=== PATIENT | male | born 1950 | race Caucasian/White ===

== ENCOUNTER 2016-08-05 09:45 | Outpatient (CLI) | payer MEDICARE | END 2016-08-05 09:46 | disposition home or self-care (01) | DX: E11.622 Type 2 diabetes mellitus with other skin ulcer (principal) ==

== ENCOUNTER 2016-08-14 07:36 | Outpatient (CLI) | payer MEDICARE | END 2016-08-14 07:37 | disposition home or self-care (01) | DX: E11.9 Type 2 diabetes mellitus without complications (principal) ==

== ENCOUNTER 2016-10-28 07:14 | Outpatient (CLI) | payer MEDICARE | END 2016-10-28 07:15 | disposition home or self-care (01) | DX: E11.9 Type 2 diabetes mellitus without complications (principal); Z12.5 Encounter for screening for malignant neoplasm of prostate; Z79.899 Other long term (current) drug therapy; I10 Essential (primary) hypertension; E78.5 Hyperlipidemia, unspecified | CPT/HCPCS: 36415; 80053; 80061; 82043; 83036; 84443; G0103 ==

== ENCOUNTER 2016-12-25 09:41 | Outpatient (CLI) | payer MEDICARE | END 2016-12-25 09:42 | disposition home or self-care (01) | DX: L97.529 Non-pressure chronic ulcer of other part of left foot with unspecified severity (principal) ==

== ENCOUNTER 2017-01-20 07:19 | Outpatient (CLI) | payer MEDICARE ==
[2017-01-20 11:13] LABS: CALCIUM 9.6 mg/dL (8.5-10.3); CREATININE 0.9 mg/dL (0.6-1.2); POTASSIUM 4.2 mmol/L (3.5-5.0)
[2017-01-20 11:16] LABS: HEMOGLOBIN A1C 0.54 g/dL
== END 2017-01-20 07:20 | disposition home or self-care (01) ==
LOC: LAB.F 07:19
PROVIDERS: ATTEND Family Medicine
DX: E11.9 Type 2 diabetes mellitus without complications (principal)
CPT/HCPCS: 36415; 80048; 83036

== ENCOUNTER 2017-04-16 07:04 | Outpatient (CLI) | payer MEDICARE ==
[2017-04-16 14:39] LABS: ALBUMIN/GLOBULIN RATIO 1.6 (1.0-2.2); BILIRUBIN,TOTAL 0.6 mg/dL (0.2-1.0); BUN - BLOOD UREA NITROGEN 17 mg/dL (6-20); CALCIUM 9.4 mg/dL (8.5-10.3); CARBON DIOXIDE - CO2 28 mmol/L (21-32); CHLORIDE 103 mmol/L (101-111); CHOL/HDL RATIO 2.1 (<5.0); CHOLESTEROL 101 mg/dL; CREATININE 0.8 mg/dL (0.6-1.2); GFR - MDRD 96 (>89); GLUCOSE 107 mg/dL (70-100); HDL CHOLESTEROL 48 mg/dL; LDL/HDL RATIO 0.9 (<3.6); POTASSIUM 4.2 mmol/L (3.5-5.0); SODIUM 138 mmol/L (135-145); TOTAL PROTEIN 6.7 g/dL (6.7-8.2); TRIGLYCERIDES 54 mg/dL; VLDL CHOLESTEROL 11 mg/dL
[2017-04-16 15:22] LABS: HEMOGLOBIN A1C 0.44 g/dL
== END 2017-04-16 07:05 | disposition home or self-care (01) ==
LOC: LAB.F 07:04
PROVIDERS: ATTEND Family Medicine
DX: E11.9 Type 2 diabetes mellitus without complications (principal); I10 Essential (primary) hypertension; E78.5 Hyperlipidemia, unspecified
CPT/HCPCS: 36415; 80053; 80061; 82043; 83036

== ENCOUNTER 2017-06-14 08:00 | Outpatient (CLI) | payer MEDICARE ==
[2017-06-15 19:56] LABS: TEST RESULT REPORT
== END 2017-06-14 08:01 | disposition home or self-care (01) ==
LOC: LAB.F 08:00
PROVIDERS: ATTEND Family Medicine
DX: K52.9 Noninfective gastroenteritis and colitis, unspecified (principal)
CPT/HCPCS: 81599; 83630; 87045; 87046; 87077; 87177; 87209; 87329

== ENCOUNTER 2017-07-07 08:34 | Outpatient (CLI) | payer MEDICARE ==
[2017-07-07 19:26] LABS: HEMOGLOBIN A1C 0.41 g/dL
== END 2017-07-07 08:35 | disposition home or self-care (01) ==
LOC: LAB.F 08:34
PROVIDERS: ATTEND Family Medicine
DX: E11.39 Type 2 diabetes mellitus with other diabetic ophthalmic complication (principal)
CPT/HCPCS: 36415; 83036

== ENCOUNTER 2017-10-13 07:15 | Outpatient (CLI) | payer MEDICARE ==
[2017-10-13 11:10] LABS: ALBUMIN 4.3 g/dL (3.2-5.5); ALBUMIN/GLOBULIN RATIO 1.8 (1.0-2.2); ALKALINE PHOSPHATASE 33 IU/L (42-121); ALT ALANINE AMINOTRANSFERASE 20 IU/L (10-60); AST ASPARTATE AMINOTRANSFERASE 21 IU/L (10-42); BILIRUBIN,TOTAL 0.6 mg/dL (0.2-1.0); BUN - BLOOD UREA NITROGEN 12 mg/dL (6-20); CALCIUM 9.3 mg/dL (8.5-10.3); CARBON DIOXIDE - CO2 25 mmol/L (21-32); CHLORIDE 103 mmol/L (101-111); CHOLESTEROL 107 mg/dL; CREATININE 0.7 mg/dL (0.6-1.2); GFR - MDRD 112 (>89); GLUCOSE 128 mg/dL (70-100); HDL CHOLESTEROL 54 mg/dL; LDL CHOLESTEROL,CALCULATED 41 mg/dL; LDL/HDL RATIO 0.8 (<3.6); SODIUM 136 mmol/L (135-145); TOTAL PROTEIN 6.7 g/dL (6.7-8.2); VLDL CHOLESTEROL 12 mg/dL
[2017-10-13 11:18] LABS: HEMOGLOBIN A1C 0.45 g/dL; HEMOGLOBIN A1C % 6.3 % (4.6-6.2)
== END 2017-10-13 07:16 | disposition home or self-care (01) ==
LOC: LAB.F 07:15
PROVIDERS: ATTEND Family Medicine
DX: G89.29 Other chronic pain (principal); E11.39 Type 2 diabetes mellitus with other diabetic ophthalmic complication; L97.529 Non-pressure chronic ulcer of other part of left foot with unspecified severity; I10 Essential (primary) hypertension; E78.5 Hyperlipidemia, unspecified
CPT/HCPCS: 36415; 80053; 80061; 83036; 83721

== ENCOUNTER 2018-01-14 07:11 | Outpatient (CLI) | payer MEDICARE ==
[2018-01-14 10:53] LABS: CALCIUM 9.3 mg/dL (8.5-10.3); CREATININE 0.7 mg/dL (0.6-1.2)
[2018-01-14 11:09] LABS: HEMOGLOBIN A1C 0.43 g/dL; HEMOGLOBIN A1C % 6.1 % (4.6-6.2)
== END 2018-01-14 07:12 | disposition home or self-care (01) ==
LOC: LAB.F 07:11
PROVIDERS: ATTEND Family Medicine
DX: I10 Essential (primary) hypertension (principal); E11.39 Type 2 diabetes mellitus with other diabetic ophthalmic complication; G89.29 Other chronic pain; E78.5 Hyperlipidemia, unspecified
CPT/HCPCS: 36415; 80048; 83036

== ENCOUNTER 2018-04-13 07:12 | Outpatient (CLI) | payer MEDICARE ==
[2018-04-13 10:54] LABS: ALBUMIN 4.2 g/dL (3.2-5.5); ALBUMIN/GLOBULIN RATIO 1.6 (1.0-2.2); ALKALINE PHOSPHATASE 36 IU/L (42-121); ALT ALANINE AMINOTRANSFERASE 21 IU/L (10-60); AST ASPARTATE AMINOTRANSFERASE 19 IU/L (10-42); BILIRUBIN,TOTAL 0.7 mg/dL (0.2-1.0); BUN - BLOOD UREA NITROGEN 16 mg/dL (6-20); CALCIUM 9.4 mg/dL (8.5-10.3); CARBON DIOXIDE - CO2 28 mmol/L (21-32); CHLORIDE 102 mmol/L (101-111); CHOLESTEROL 106 mg/dL; CREATININE 0.9 mg/dL (0.6-1.2); GFR - MDRD 83 (>89); GLUCOSE 164 mg/dL (70-100); HDL CHOLESTEROL 53 mg/dL; LDL CHOLESTEROL,CALCULATED 38 mg/dL; LDL/HDL RATIO 0.7 (<3.6); SODIUM 137 mmol/L (135-145); TOTAL PROTEIN 6.9 g/dL (6.7-8.2); VLDL CHOLESTEROL 15 mg/dL
[2018-04-13 10:56] LABS: HB2 TOTAL 9.9 g/dL; HEMOGLOBIN A1C 0.53 g/dL
== END 2018-04-13 07:13 | disposition home or self-care (01) ==
LOC: LAB.F 07:12
PROVIDERS: ATTEND Family Medicine
DX: G89.29 Other chronic pain (principal); E11.9 Type 2 diabetes mellitus without complications; I10 Essential (primary) hypertension; E78.5 Hyperlipidemia, unspecified
CPT/HCPCS: 36415; 80053; 80061; 82043; 83036; 83721

== ENCOUNTER 2018-07-27 07:06 | Outpatient (CLI) | payer MEDICARE ==
[2018-07-27 12:58] LABS: ALBUMIN 4.1 g/dL (3.2-5.5); ALBUMIN/GLOBULIN RATIO 1.7 (1.0-2.2); ALKALINE PHOSPHATASE 32 IU/L (42-121); ALT ALANINE AMINOTRANSFERASE 20 IU/L (10-60); AST ASPARTATE AMINOTRANSFERASE 21 IU/L (10-42); BILIRUBIN,TOTAL 0.8 mg/dL (0.2-1.0); BUN - BLOOD UREA NITROGEN 13 mg/dL (6-20); CALCIUM 9.3 mg/dL (8.5-10.3); CARBON DIOXIDE - CO2 26 mmol/L (21-32); CHLORIDE 100 mmol/L (101-111); CHOL/HDL RATIO 2.5 (<5.0); CHOLESTEROL 119 mg/dL; CREATININE 0.8 mg/dL (0.6-1.2); GFR - MDRD 96 (>89); GLUCOSE 164 mg/dL (70-100); HDL CHOLESTEROL 48 mg/dL; LDL CHOLESTEROL,CALCULATED 57 mg/dL; LDL/HDL RATIO 1.2 (<3.6); SODIUM 137 mmol/L (135-145); TOTAL PROTEIN 6.5 g/dL (6.7-8.2); VLDL CHOLESTEROL 14 mg/dL
[2018-07-27 14:05] LABS: HB2 TOTAL 9.5 g/dL; HEMOGLOBIN A1C 0.48 g/dL; HEMOGLOBIN A1C % 6.8 % (4.6-6.2)
== END 2018-07-27 07:07 | disposition home or self-care (01) ==
LOC: LAB.F 07:06
PROVIDERS: ATTEND Internal Medicine
DX: E11.9 Type 2 diabetes mellitus without complications (principal)
CPT/HCPCS: 36415; 80053; 80061; 83036; 83721

== ENCOUNTER 2019-01-27 09:50 | Outpatient (CLI) | payer MEDICARE ==
[2019-01-27] MEDS ORDERED: BARIUM SULFATE 148 GM POWDER PO ONE (10:47)
[2019-01-27] MEDS ORDERED: BARIUM SULFATE 176 GM BOTTLE PO ONE (10:47)
--- NOTE | 2019-01-27 16:31 | XRAY Report ---
Reason: OTHER DYSPHAGIA Procedure Date: 01/27/2019 Accession Number: [id number] / [id number] Procedure: [place] - Esophogram CPT Code: FULL RESULT: EXAM: BARIUM ESOPHAGRAM EXAM DATE: 01/27/2019 10:31 AM. CLINICAL HISTORY: OTHER DYSPHAGIA. COMPARISONS: None. TECHNIQUE: Routine single contrast esophagram. Fluoroscopy Time: 3 minutes 23 seconds. Number of Images: 78. FINDINGS: Swallowing Mechanism: Normal. No tracheal aspiration or penetration. Esophageal Motility: Normal peristaltic stripping wave. Mucosa: Normal. No ulcerations or masses. Gastroesophageal Junction: Small hiatal hernia with minimal reflux into the lower esophagus. Other: A 13 mm barium tablet passes easily into the stomach. No findings of a Zenker's diverticulum IMPRESSION: 1. Very small hiatal hernia with reflux into the lower esophagus. 2. No evidence of a Zenker's diverticulum or stricture. 3. Otherwise unremarkable. RADIA
== END 2019-01-27 09:51 | disposition home or self-care (01) ==
LOC: DI 09:50
PROVIDERS: ATTEND Otolaryngology
DX: K44.9 Diaphragmatic hernia without obstruction or gangrene (principal); K21.9 Gastro-esophageal reflux disease without esophagitis
CPT/HCPCS: 74220; A9270

== ENCOUNTER 2019-02-08 08:00 | Outpatient (CLI) | payer MEDICARE ==
[2019-02-08 10:23] LABS: ALBUMIN 4.2 g/dL (3.2-5.5); ALBUMIN/GLOBULIN RATIO 1.4 (1.0-2.2); ALKALINE PHOSPHATASE 38 IU/L (42-121); ALT ALANINE AMINOTRANSFERASE 16 IU/L (10-60); AST ASPARTATE AMINOTRANSFERASE 19 IU/L (10-42); BILIRUBIN,TOTAL 0.5 mg/dL (0.2-1.0); BUN - BLOOD UREA NITROGEN 12 mg/dL (6-20); CALCIUM 9.5 mg/dL (8.5-10.3); CARBON DIOXIDE - CO2 24 mmol/L (21-32); CHLORIDE 104 mmol/L (101-111); CHOL/HDL RATIO 2.4 (<5.0); CHOLESTEROL 115 mg/dL; CREATININE 0.8 mg/dL (0.6-1.2); GFR - MDRD 96 (>89); GLUCOSE 152 mg/dL (70-100); HDL CHOLESTEROL 48 mg/dL; LDL CHOLESTEROL,CALCULATED 55 mg/dL; LDL/HDL RATIO 1.1 (<3.6); SODIUM 140 mmol/L (135-145); TOTAL PROTEIN 7.1 g/dL (6.7-8.2); VLDL CHOLESTEROL 12 mg/dL
[2019-02-08 10:34] LABS: HB2 TOTAL 8.1 g/dL; HEMOGLOBIN A1C 0.44 g/dL; HEMOGLOBIN A1C % 7.1 % (4.6-6.2)
[2019-02-08 10:36] LABS: MICROALBUMIN,URINE < 0.2 mg/dL (0-300.0)
== END 2019-02-08 08:01 | disposition home or self-care (01) ==
LOC: LAB.S 08:00
PROVIDERS: ATTEND Internal Medicine
DX: E78.5 Hyperlipidemia, unspecified (principal); E11.9 Type 2 diabetes mellitus without complications
CPT/HCPCS: 36415; 80053; 80061; 82043; 82570; 83036; 83721

== ENCOUNTER 2019-08-16 09:23 | Outpatient (CLI) | payer MEDICARE ==
[2019-08-16 18:04] LABS: HB2 TOTAL 7.6 g/dL; HEMOGLOBIN A1C 0.4 g/dL
[2019-08-16 18:09] LABS: CALCIUM 9.4 mg/dL (8.5-10.3); CREATININE 0.9 mg/dL (0.6-1.2)
== END 2019-08-16 09:24 | disposition home or self-care (01) ==
LOC: LAB.S 09:23
PROVIDERS: ATTEND Internal Medicine
DX: E11.9 Type 2 diabetes mellitus without complications (principal)
CPT/HCPCS: 36415; 80048; 83036

== ENCOUNTER 2020-08-13 07:17 | Outpatient (CLI) | payer MEDICARE ==
[2020-08-13 16:01] LABS: BASOPHILS # (AUTO) 0.1 10^3/uL (0.0-0.1); BASOPHILS % (AUTO) 1.6 %; EOSINOPHILS # (AUTO) 0.3 10^3/uL (0.0-0.7); EOSINOPHILS % (AUTO) 5.8 %; LYMPHOCYTES # (AUTO) 1.4 10^3/uL (1.5-3.5); MEAN CORPUSCULAR HEMOGLOBIN 15.6 pg (27.0-31.0); MEAN CORPUSCULAR HGB CONC 24.9 g/dL (32.0-36.0); MEAN CORPUSCULAR VOLUME 62.8 fL (80.0-94.0); MEAN PLATELET VOLUME 9.9 fL (7.4-11.4); MONOCYTES # (AUTO) 0.5 10^3/uL (0.0-1.0); MONOCYTES % (AUTO) 8.7 %; NEUTROPHILS # (AUTO) 2.9 10^3/uL (1.5-6.6); NEUTROPHILS % (AUTO) 56.7 %; PLT - PLATELET COUNT 359 10^3/uL (130-450); RED BLOOD COUNT 4.22 10^6/uL (4.70-6.10); RED CELL DISTRIBUTION WIDTH 23.1 % (12.0-15.0); WHITE BLOOD COUNT 5.2 x10^3/uL (4.8-10.8)
[2020-08-13 16:20] LABS: ALBUMIN 4.4 g/dL (3.2-5.5); ALBUMIN/GLOBULIN RATIO 1.8 (1.0-2.2); BILIRUBIN,TOTAL 0.7 mg/dL (0.2-1.0); CALCIUM 9.5 mg/dL (8.5-10.3); CREATININE 0.9 mg/dL (0.6-1.2); TOTAL PROTEIN 6.9 g/dL (6.7-8.2)
[2020-08-13 16:34] LABS: HGB - HEMOGLOBIN 6.6 g/dL (14.0-18.0)
[2020-08-13 17:36] LABS: PLATELET ESTIMATE, MANUAL NORMAL (130-450,000) (NORMAL); PLATELET MORPHOLOGY NORMAL APPEARANCE (NORMAL)
== END 2020-08-13 07:18 | disposition home or self-care (01) ==
LOC: LAB.S 07:17
PROVIDERS: ATTEND Internal Medicine
DX: I10 Essential (primary) hypertension (principal); Z12.5 Encounter for screening for malignant neoplasm of prostate; E11.9 Type 2 diabetes mellitus without complications; E78.5 Hyperlipidemia, unspecified
CPT/HCPCS: 36415; 80053; 85025; G0103; 84153

== ENCOUNTER 2020-08-14 12:03 | Outpatient (CLI) | payer MEDICARE ==
[2020-08-14 16:09] LABS: BASOPHILS # (AUTO) 0.1 10^3/uL (0.0-0.1); BASOPHILS % (AUTO) 0.9 %; EOSINOPHILS # (AUTO) 0.2 10^3/uL (0.0-0.7); EOSINOPHILS % (AUTO) 3.6 %; LYMPHOCYTES # (AUTO) 1.9 10^3/uL (1.5-3.5); LYMPHOCYTES % (AUTO) 28.1 %; MEAN CORPUSCULAR HEMOGLOBIN 15.7 pg (27.0-31.0); MEAN CORPUSCULAR HGB CONC 25.2 g/dL (32.0-36.0); MEAN CORPUSCULAR VOLUME 62.3 fL (80.0-94.0); MONOCYTES # (AUTO) 0.7 10^3/uL (0.0-1.0); MONOCYTES % (AUTO) 10.1 %; NEUTROPHILS # (AUTO) 3.8 10^3/uL (1.5-6.6); NEUTROPHILS % (AUTO) 57.1 %; PLT - PLATELET COUNT 352 10^3/uL (130-450); RED BLOOD COUNT 4.27 10^6/uL (4.70-6.10); RED CELL DISTRIBUTION WIDTH 22.8 % (12.0-15.0); WHITE BLOOD COUNT 6.6 x10^3/uL (4.8-10.8)
[2020-08-14 16:56] LABS: HGB - HEMOGLOBIN 6.7 g/dL (14.0-18.0)
[2020-08-14 18:30] LABS: PLATELET ESTIMATE, MANUAL NORMAL (130-450,000) (NORMAL); PLATELET MORPHOLOGY NORMAL APPEARANCE (NORMAL)
== END 2020-08-14 12:04 | disposition home or self-care (01) ==
LOC: LAB.S 12:03
PROVIDERS: ATTEND Internal Medicine
DX: D64.9 Anemia, unspecified (principal)
CPT/HCPCS: 36415; 85025

== ENCOUNTER 2020-09-12 11:02 | Outpatient (CLI) | payer MEDICARE ==
[2020-09-12] MEDS ORDERED: IOPAMIDOL-300 50 ML VIAL ONE (11:26)
[2020-09-12] MEDS ORDERED: IOVERSOL 320 100 ML VIAL IVP ONE ×2 (11:26→17:02)
--- NOTE | 2020-09-12 15:22 | CT Report ---
PROCEDURE: Abdomen/Pelvis W INDICATIONS: LUQ ABD PAIN, ABN WEIGHT LOSS CONTRAST: IV CONTRAST: Optiray 320 ml: 100 PO CONTRAST: Isovue 300 ml50 TECHNIQUE: After the administration of intravenous and oral contrast, 5 mm thick sections acquired from the diap hragms to the symphysis. 5 mm thick coronal and sagittal reformats were acquired. For radiation dos e reduction, the following was used: automated exposure control, adjustment of mA and/or kV accordin g to patient size. COMPARISON: None. FINDINGS: Image quality: Excellent. ABDOMEN: Lung bases: Lung bases are clear. Heart size is normal. Solid organs: Liver and spleen are normal in size and enhancement. Gallbladder is normal. Biliary system is non dilated. Pancreas enhances normally. No adrenal nodules. Kidneys demonstrate normal size and enhancement, without hydronephrosis. Peritoneum and bowel: Extensive sigmoid diverticulosis without findings of diverticulitis. Large volu me of formed stool throughout the colon which may indicate constipation. No abnormally dilated loops of bowel. No free air or free fluid. Nodes and vessels: No retroperitoneal or mesenteric adenopathy by size criteria. Aorta and inferior vena cava are normal in size. Miscellaneous: No ventral hernias. PELVIS: Genitourinary: Bladder wall thickness is normal. Miscellaneous: No inguinal hernias or adenopathy. Bones: No suspicious bony lesions. No vertebral body compression fractures. IMPRESSION: No acute finding to explain abdominal pain or weight loss. Large volume of formed stool throughout the colon may indicate constipation. Extensive sigmoid diverticulosis. Reviewed by: Albert Escobedo MD on 09/12/2020 3:20 PM PST Approved by: Albert Escobedo MD on 09/12/2020 3:20 PM PST Station ID: [id number]
== END 2020-09-12 11:03 | disposition home or self-care (01) ==
LOC: DI 11:02
PROVIDERS: ATTEND Internal Medicine
DX: R10.12 Left upper quadrant pain (principal); R63.4 Abnormal weight loss; K57.30 Diverticulosis of large intestine without perforation or abscess without bleeding
CPT/HCPCS: 74177; Q9967

== ENCOUNTER 2020-11-05 09:12 | Outpatient (CLI) | payer MEDICARE ==
[2020-11-05 15:08] LABS: BASOPHILS # (AUTO) 0.1 10^3/uL (0.0-0.1); BASOPHILS % (AUTO) 1.3 %; EOSINOPHILS # (AUTO) 0.3 10^3/uL (0.0-0.7); EOSINOPHILS % (AUTO) 5.9 %; HCT - HEMATOCRIT 28.2 % (42.0-52.0); HGB - HEMOGLOBIN 7.4 g/dL (14.0-18.0); LYMPHOCYTES # (AUTO) 1.3 10^3/uL (1.5-3.5); LYMPHOCYTES % (AUTO) 25.1 %; MEAN CORPUSCULAR HEMOGLOBIN 17.1 pg (27.0-31.0); MEAN CORPUSCULAR HGB CONC 26.2 g/dL (32.0-36.0); MONOCYTES # (AUTO) 0.4 10^3/uL (0.0-1.0); MONOCYTES % (AUTO) 7.8 %; NEUTROPHILS # (AUTO) 3.1 10^3/uL (1.5-6.6); NEUTROPHILS % (AUTO) 59.7 %; PLT - PLATELET COUNT 329 10^3/uL (130-450); RED BLOOD COUNT 4.34 10^6/uL (4.70-6.10); RED CELL DISTRIBUTION WIDTH 23.5 % (12.0-15.0); SLIDE REVIEW? Indicated; WHITE BLOOD COUNT 5.3 x10^3/uL (4.8-10.8)
[2020-11-05 15:28] LABS: PLATELET ESTIMATE, MANUAL NORMAL (130-450,000) (NORMAL); PLATELET MORPHOLOGY NORMAL APPEARANCE (NORMAL); WBC MORPHOLOGY (MULTIPLE) NORMAL APPEARANCE (NORMAL)
[2020-11-05 15:29] LABS: RBC MORPHOLOGY (MULTIPLE) 2+ ANISOCYTOSIS (NORMAL)
[2020-11-05 16:03] LABS: FECAL OCCULT BLOOD (FIT) NEGATIVE (NEGATIVE)
[2020-11-05 20:03] LABS: ESTIMATED AVERAGE GLUCOSE 123 mg/dL (70-100); HEMOGLOBIN A1c% 5.9 % (4.27-6.07)
== END 2020-11-05 09:13 | disposition home or self-care (01) ==
LOC: LAB.S 09:12
PROVIDERS: ATTEND Internal Medicine
DX: E11.9 Type 2 diabetes mellitus without complications (principal); D64.9 Anemia, unspecified; Z12.11 Encounter for screening for malignant neoplasm of colon
CPT/HCPCS: 36415; 82274; 82728; 83036; 85025

== ENCOUNTER 2020-11-29 07:13 | Outpatient (CLI) | payer MEDICARE ==
--- NOTE | 2020-11-29 08:20 | Ultrasound Report ---
PROCEDURE: Head or Neck Soft Tissue INDICATIONS: THYROMEGALY TECHNIQUE: Real-time scanning was performed of the thyroid gland, with image documentation. COMPARISON: None FINDINGS: Right: Thyroid lobe measures 4 x 1.5 x 1.6 cm, and is homogeneous in echotexture. Left: Thyroid lobe measures 4 x 1.4 x 1.7 cm, and is homogenous in echotexture. Isthmus: 2 mm thick. Nodule number: One Location: Midpole of left thyroid lobe Size: 4 x 3 x 5 mm. Composition: Cystic Echogenicity: Anechoic Shape: wider than tall. Margins: Smooth Echogenic foci: Common tail artifact Total points: 2 ACR TI-RADS category: 2, not suspicious. IMPRESSION: 1. Thyroid gland is normal in size. Benign appearing cystic nodule is seen in left thyroid lobe. No s uspicious thyroid nodule is seen. ACR TI-RADS definitions and recommendations: TI-RADS 1 (benign): 0 points. FNA not needed. TI-RADS 2 (not suspicious): 2 points. FNA not needed. TI-RADS 3 (mildly suspicious): 3 points. ? FNA if 2.5 cm or larger, follow up if 1.5 cm or larger (at 1, 3, and 5 years). TI-RADS 4 (moderately suspicious): 4-6 points. ? FNA if 1.5 cm or larger, follow up if 1 cm or larger (at 1, 2, 3, and 5 years). TI-RADS 5 (highly suspicious): 7 points or more. ? FNA if 1 cm or larger, follow up if 0.5 cm or larger (every year for 5 years). Reviewed by: Good Bledsoe MD on 11/29/2020 8:19 AM PDT Approved by: Good Bledsoe MD on 11/29/2020 8:19 AM PDT Station ID: [id number]
== END 2020-11-29 07:14 | disposition home or self-care (01) ==
LOC: DI 07:13
PROVIDERS: ATTEND Internal Medicine
DX: E04.1 Nontoxic single thyroid nodule (principal)

== ENCOUNTER 2020-12-13 15:14 | Outpatient (CLI) | payer MEDICARE | END 2020-12-13 15:15 | disposition home or self-care (01) | LOC: COV 15:14 | PROVIDERS: ATTEND Surgery | DX: Z01.812 Encounter for preprocedural laboratory examination (principal); D64.9 Anemia, unspecified; R63.4 Abnormal weight loss; E11.9 Type 2 diabetes mellitus without complications; Z79.4 Long term (current) use of insulin; Z20.822 Contact with and (suspected) exposure to COVID-19 ==

== ENCOUNTER 2020-12-18 06:05 | Day surgery (SDC) | payer MEDICARE ==
[2020-12-18] MEDS ORDERED: LACTATED RINGERS 1,000 ML IV ONE ×2 (06:49→08:13)
[2020-12-18] MEDS ORDERED: MIDAZOLAM 2 MG/2 ML VIAL ONE (06:56)
[2020-12-18] MEDS ORDERED: PROPOFOL 200 MG/20 ML VIAL IVP ONE (06:57)
[2020-12-18] MEDS ORDERED: KETAMINE 500 MG/10 ML VIAL ONE (07:00)
[2020-12-18] MEDS ORDERED: SODIUM CHLORIDE 0.9% 10 ML VIAL IVP ONE (07:01)
--- NOTE | 2020-12-18 07:10 | ANESTHESIA ---
Pre-Anesthesia VS, & Labs - Diagnosis weightloss, anemia - Procedure EGD and colonoscopy Vital Signs: Temp Pulse Resp BP Pulse Ox 36.4 C L 73 18 172/70 H 99 12/18/20 06:17 12/18/20 06:17 12/18/20 06:17 12/18/20 06:17 12/18/20 06:17 Height: 5 ft 7 in Weight (kg): 88.5 kg Body Mass Index: 30.5 BMI Classification: Obese - NPO >8 hours - Lab Results Current Lab Results: Laboratory Tests 12/18/20 06:39: POC Whole Bld Glucose 128 H Home Medications and Allergies Home Medications: Ambulatory Orders Aspirin [Aspirin EC] 81 mg PO DAILY 12/17/20 Atorvastatin [Lipitor] 10 mg PO DAILY 12/17/20 Benazepril HCl [Lotensin] 40 mg PO BID 12/17/20 Docusate Sodium 100Mg Capsule [Colace 100Mg Capsule] 400 mg PO DAILY 12/17/20 Ferrous Gluconate 324 mg PO DAILY 12/17/20 Finasteride [Proscar] 5 mg PO DAILY 12/17/20 Insulin Glargine [Lantus Solostar] 19 unit SQ DAILY PM 12/17/20 Lactobacillus Acidophilus [Probiotic Acidophilus] 1 tab PO BID 12/17/20 Meloxicam [Mobic] 7.5 mg PO BID 12/17/20 Omeprazole 40 mg PO DAILY 12/17/20 Tamsulosin [Flomax] 0.4 mg PO ONCE 12/17/20 diazePAM [Valium] 5 mg PO PRN PRN 12/17/20 glipiZIDE [Glucotrol Xl] 2.5 mg PO DAILY 12/17/20 metFORMIN [Glucophage] 1,000 mg PO TID 12/17/20 Aspirin [Aspirin EC] 81 mg PO DAILY 12/17/20 Atorvastatin [Lipitor] 10 mg PO DAILY 12/17/20 Benazepril HCl [Lotensin] 40 mg PO BID 12/17/20 Docusate Sodium 100Mg Capsule [Colace 100Mg Capsule] 400 mg PO DAILY 12/17/20 Ferrous Gluconate 324 mg PO DAILY 12/17/20 Finasteride [Proscar] 5 mg PO DAILY 12/17/20 Insulin Glargine [Lantus Solostar] 19 unit SQ DAILY PM 12/17/20 Lactobacillus Acidophilus [Probiotic Acidophilus] 1 tab PO BID 12/17/20 Meloxicam [Mobic] 7.5 mg PO BID 12/17/20 Omeprazole 40 mg PO DAILY 12/17/20 Tamsulosin [Flomax] 0.4 mg PO ONCE 12/17/20 diazePAM [Valium] 5 mg PO PRN PRN 12/17/20 glipiZIDE [Glucotrol Xl] 2.5 mg PO DAILY 12/17/20 metFORMIN [Glucophage] 1,000 mg PO TID 12/17/20 Allergies/Adverse Reactions: Allergies Allergy/AdvReac Type Severity Reaction Status Date / Time almond Allergy Severe Anaphylaxis Verified 12/17/20 14:55 cephalexin Allergy Severe Anaphylaxis Verified 12/17/20 14:55 Penicillins Allergy Severe Respiratory Verified 12/17/20 14:55 pilocarpine Allergy Severe Unknown Verified 12/17/20 14:55 walnut Allergy Severe Anaphylaxis Verified 12/17/20 14:55 clindamycin AdvReac Unknown Verified 12/17/20 14:55 Anes History & Medical History - Anesthetic History Anesthesia Complications: reports: Emergence delirium - Medical History Cardiovascular: reports: Hypertension, High cholesterol Pulmonary: reports: None Gastrointestinal: reports: GERD, GI bleed, Other Urinary: reports: Benign prostate hypertrophy Neuro: reports: None Musculoskeletal: reports: Osteoarthritis, Fatigue Endocrine/Autoimmune: reports: Type 2 diabetes, Other Blood Disorders: reports: Anemia Skin: reports: None Smoking Status: Former smoker Psychosocial: reports: Alcohol (shot at night) History of Cancer?: No - Surgical History General: reports: Appendectomy Eyes Ears Nose Throat (EENT): reports: Tonsil/Adenoidectomy Orthopedic: reports: Knee replacement, Amputation Exam General: Alert, Oriented x3, Cooperative, No acute distress Dental: WNL Mouth Openin Fingerbreadth Neck Mobility: Normal Mallampati classification: II Respiratory: Lungs clear, Normal breath sounds, No respiratory distress, No accessory muscle use Cardiovascular: Regular rate, Normal S1, Normal S2, No murmurs Mental/Cognitive Status: Alert/Oriented X3, Normal for patient Plan Anesthesia Type: Total IV Consent for Procedure(s) Verified and Reviewed: Yes Code Status: Attempt Resuscitation ASA classification: 3-Severe systemic disease Is this case an emergency?: No
[2020-12-18] MEDS ORDERED: LIDOCAINE-MPF 2% 5 ML VIAL ONE (07:13)
[2020-12-18 08:35] VITALS: BP 110/58
--- NOTE | 2020-12-18 09:05 | ANESTHESIA POST OP EVALUATION ---
Anesthesia Post Eval - Post Anesthesia Eval Vitals: Last Vital Signs Temp 36 C L 12/18/20 08:33 Pulse 68 12/18/20 08:33 Resp 14 12/18/20 08:33 BP 110/58 L 12/18/20 08:33 Pulse Ox 100 12/18/20 08:33 CV Function Including HR & BP: Stable Pain Control: Satisfactory Nausea & Vomiting: Negative Mental Status: Baseline Respiratory Status: Airway Patent Hydration Status: Satisfactory Anesthesia Complications: None
== END 2020-12-18 06:06 | disposition home or self-care (01) ==
LOC: SDS 06:05
PROVIDERS: ATTEND Surgery
PROC: 0DJ08ZZ Inspection of Upper Intestinal Tract, Via Natural or Artificial Opening Endoscopic (ICD-10-PCS; principal; 2020-12-18 07:30)
PROC: 0DJD8ZZ Inspection of Lower Intestinal Tract, Via Natural or Artificial Opening Endoscopic (ICD-10-PCS; 2020-12-18 07:30)
DX: D64.9 Anemia, unspecified (principal); K57.30 Diverticulosis of large intestine without perforation or abscess without bleeding; Z88.4 Allergy status to anesthetic agent; E11.9 Type 2 diabetes mellitus without complications; E01.0 Iodine-deficiency related diffuse (endemic) goiter; H91.90 Unspecified hearing loss, unspecified ear; N40.1 Benign prostatic hyperplasia with lower urinary tract symptoms; N13.8 Other obstructive and reflux uropathy; I10 Essential (primary) hypertension; E78.5 Hyperlipidemia, unspecified; E66.9 Obesity, unspecified; Z68.30 Body mass index [BMI] 30.0-30.9, adult; Z89.412 Acquired absence of left great toe; Z79.4 Long term (current) use of insulin; Z79.82 Long term (current) use of aspirin; Z87.891 Personal history of nicotine dependence; Z87.11 Personal history of peptic ulcer disease
CPT/HCPCS: 43235; 45378; J7120

== ENCOUNTER 2021-02-04 08:42 | Outpatient (CLI) | payer MEDICARE ==
[2021-02-04 14:49] LABS: BASOPHILS # (AUTO) 0.1 10^3/uL (0.0-0.1); BASOPHILS % (AUTO) 1.4 %; EOSINOPHILS # (AUTO) 0.2 10^3/uL (0.0-0.7); EOSINOPHILS % (AUTO) 3.7 %; HCT - HEMATOCRIT 33.8 % (42.0-52.0); HGB - HEMOGLOBIN 9.2 g/dL (14.0-18.0); LYMPHOCYTES # (AUTO) 1.6 10^3/uL (1.5-3.5); LYMPHOCYTES % (AUTO) 30.5 %; MEAN CORPUSCULAR HEMOGLOBIN 18.7 pg (27.0-31.0); MEAN CORPUSCULAR HGB CONC 27.2 g/dL (32.0-36.0); MEAN CORPUSCULAR VOLUME 68.6 fL (80.0-94.0); MEAN PLATELET VOLUME 10.9 fL (7.4-11.4); MONOCYTES # (AUTO) 0.5 10^3/uL (0.0-1.0); MONOCYTES % (AUTO) 9.1 %; NEUTROPHILS # (AUTO) 2.8 10^3/uL (1.5-6.6); NEUTROPHILS % (AUTO) 55.1 %; PLT - PLATELET COUNT 280 10^3/uL (130-450); RED BLOOD COUNT 4.93 10^6/uL (4.70-6.10); RED CELL DISTRIBUTION WIDTH 21.2 % (12.0-15.0); WHITE BLOOD COUNT 5.2 x10^3/uL (4.8-10.8)
[2021-02-04 14:58] LABS: SLIDE REVIEW? Indicated
[2021-02-04 15:00] LABS: ALBUMIN 4.1 g/dL (3.2-5.5); ALBUMIN/GLOBULIN RATIO 1.6 (1.0-2.2); BILIRUBIN,TOTAL 0.6 mg/dL (0.2-1.0); CALCIUM 9.2 mg/dL (8.5-10.3); CREATININE 0.8 mg/dL (0.6-1.2); POTASSIUM 4.2 mmol/L (3.5-5.0); TOTAL PROTEIN 6.7 g/dL (6.7-8.2)
[2021-02-04 15:12] LABS: THYROID STIMULATING HORMONE 1.53 uIU/mL (0.34-5.60)
[2021-02-04 15:30] LABS: PLATELET ESTIMATE, MANUAL NORMAL (130-450,000) (NORMAL); PLATELET MORPHOLOGY NORMAL APPEARANCE (NORMAL)
[2021-02-04 20:16] LABS: ESTIMATED AVERAGE GLUCOSE 140 mg/dL (70-100); HEMOGLOBIN A1c% 6.5 % (4.27-6.07)
== END 2021-02-04 08:43 | disposition home or self-care (01) ==
LOC: LAB.S 08:42
PROVIDERS: ATTEND Internal Medicine
DX: I10 Essential (primary) hypertension (principal); E11.9 Type 2 diabetes mellitus without complications; E01.0 Iodine-deficiency related diffuse (endemic) goiter
CPT/HCPCS: 36415; 80053; 83036; 84443; 85025

== ENCOUNTER 2021-05-09 07:04 | Outpatient (CLI) | payer MEDICARE ==
[2021-05-09 15:13] LABS: BASOPHILS # (AUTO) 0.1 10^3/uL (0.0-0.1); BASOPHILS % (AUTO) 1.3 %; EOSINOPHILS # (AUTO) 0.3 10^3/uL (0.0-0.7); EOSINOPHILS % (AUTO) 5.3 %; HCT - HEMATOCRIT 38.2 % (42.0-52.0); HGB - HEMOGLOBIN 10.7 g/dL (14.0-18.0); LYMPHOCYTES % (AUTO) 37.5 %; MEAN CORPUSCULAR HEMOGLOBIN 20.6 pg (27.0-31.0); MEAN CORPUSCULAR VOLUME 73.6 fL (80.0-94.0); MEAN PLATELET VOLUME 10.2 fL (7.4-11.4); MONOCYTES # (AUTO) 0.5 10^3/uL (0.0-1.0); MONOCYTES % (AUTO) 9.4 %; NEUTROPHILS # (AUTO) 2.5 10^3/uL (1.5-6.6); NEUTROPHILS % (AUTO) 46.3 %; PLT - PLATELET COUNT 266 10^3/uL (130-450); RED BLOOD COUNT 5.19 10^6/uL (4.70-6.10); RED CELL DISTRIBUTION WIDTH 22.5 % (12.0-15.0); WHITE BLOOD COUNT 5.3 x10^3/uL (4.8-10.8)
[2021-05-09 15:35] LABS: ALBUMIN 4.3 g/dL (3.2-5.5); ALBUMIN/GLOBULIN RATIO 1.7 (1.0-2.2); ALKALINE PHOSPHATASE 44 IU/L (42-121); ALT ALANINE AMINOTRANSFERASE 20 IU/L (10-60); AST ASPARTATE AMINOTRANSFERASE 21 IU/L (10-42); BILIRUBIN,TOTAL 0.5 mg/dL (0.2-1.0); BUN - BLOOD UREA NITROGEN 16 mg/dL (6-20); CALCIUM 9.6 mg/dL (8.5-10.3); CARBON DIOXIDE - CO2 28 mmol/L (21-32); CHLORIDE 102 mmol/L (101-111); CHOL/HDL RATIO 2.1 (<5.0); CHOLESTEROL 125 mg/dL; CREATININE 0.8 mg/dL (0.6-1.2); GFR - MDRD 95 (>89); GLUCOSE 148 mg/dL (70-100); HDL CHOLESTEROL 59 mg/dL; LDL CHOLESTEROL,CALCULATED 53 mg/dL; LDL/HDL RATIO 0.9 (<3.6); POTASSIUM 4.4 mmol/L (3.5-5.0); SODIUM 139 mmol/L (135-145); TOTAL PROTEIN 6.8 g/dL (6.7-8.2); TRIGLYCERIDES 64 mg/dL; VLDL CHOLESTEROL 13 mg/dL
[2021-05-09 15:56] LABS: PLATELET MORPHOLOGY NORMAL APPEARANCE (NORMAL); SLIDE REVIEW? Indicated
[2021-05-09 15:57] LABS: PLATELET ESTIMATE, MANUAL NORMAL (130-450,000) (NORMAL); WBC MORPHOLOGY (MULTIPLE) NORMAL APPEARANCE (NORMAL)
[2021-05-09 16:00] LABS: CREATININE,URINE 48.3 mg/dL
[2021-05-09 16:20] LABS: MICROALBUMIN,URINE < 0.2 mg/dL (0-300.0)
[2021-05-09 19:56] LABS: ESTIMATED AVERAGE GLUCOSE 157 mg/dL (70-100); HEMOGLOBIN A1c% 7.1 % (4.27-6.07)
== END 2021-05-09 07:05 | disposition home or self-care (01) ==
LOC: LAB.S 07:04
PROVIDERS: ATTEND Internal Medicine
DX: I10 Essential (primary) hypertension (principal); E78.5 Hyperlipidemia, unspecified; E11.9 Type 2 diabetes mellitus without complications; D64.9 Anemia, unspecified
CPT/HCPCS: 36415; 80053; 80061; 82043; 82570; 82728; 83036; 83721; 85025

== ENCOUNTER 2021-08-05 09:27 | Outpatient (CLI) | payer MEDICARE ==
[2021-08-05 14:36] LABS: BASOPHILS # (AUTO) 0.1 10^3/uL (0.0-0.1); BASOPHILS % (AUTO) 1.1 %; EOSINOPHILS # (AUTO) 0.3 10^3/uL (0.0-0.7); EOSINOPHILS % (AUTO) 4.1 %; HCT - HEMATOCRIT 46.7 % (42.0-52.0); HGB - HEMOGLOBIN 15.4 g/dL (14.0-18.0); LYMPHOCYTES # (AUTO) 1.9 10^3/uL (1.5-3.5); LYMPHOCYTES % (AUTO) 28.6 %; MEAN CORPUSCULAR HEMOGLOBIN 27.1 pg (27.0-31.0); MEAN CORPUSCULAR VOLUME 82.2 fL (80.0-94.0); MEAN PLATELET VOLUME 10.8 fL (7.4-11.4); MONOCYTES # (AUTO) 0.5 10^3/uL (0.0-1.0); MONOCYTES % (AUTO) 7.8 %; NEUTROPHILS # (AUTO) 3.8 10^3/uL (1.5-6.6); NEUTROPHILS % (AUTO) 58.1 %; PLT - PLATELET COUNT 225 10^3/uL (130-450); RED BLOOD COUNT 5.68 10^6/uL (4.70-6.10); RED CELL DISTRIBUTION WIDTH 22.1 % (12.0-15.0); WHITE BLOOD COUNT 6.5 x10^3/uL (4.8-10.8)
[2021-08-05 15:07] LABS: SLIDE REVIEW? Indicated
[2021-08-05 16:27] LABS: PLATELET ESTIMATE, MANUAL NORMAL (130-450,000) (NORMAL); PLATELET MORPHOLOGY NORMAL APPEARANCE (NORMAL); RBC MORPHOLOGY (MULTIPLE) 2+ HYPOCHROMASIA (NORMAL)
[2021-08-05 20:25] LABS: ESTIMATED AVERAGE GLUCOSE 169 mg/dL (70-100); HEMOGLOBIN A1c% 7.5 % (4.27-6.07)
== END 2021-08-05 09:28 | disposition home or self-care (01) ==
LOC: LAB.S 09:27
PROVIDERS: ATTEND Internal Medicine
DX: D64.9 Anemia, unspecified (principal); E11.9 Type 2 diabetes mellitus without complications; E87.6 Hypokalemia
CPT/HCPCS: 36415; 82728; 83036; 83735; 85025

== ENCOUNTER 2021-11-11 07:03 | Outpatient (CLI) | payer MEDICARE | END 2021-11-11 07:04 | disposition home or self-care (01) | LOC: LAB.S 07:03 | PROVIDERS: ATTEND Registered Nurse | DX: E11.9 Type 2 diabetes mellitus without complications (principal) | CPT/HCPCS: 36415; 81599; 83036 ==

== ENCOUNTER 2021-12-11 07:01 | Day surgery (SDC) | payer MEDICARE ==
[~2021-12-11 07:01] MED LIST: CYCLOPENTOLATE 1% OPHTH DROPS 2 ML ONE; KETOROLAC 0.45% OPHTH DROPS ONE; PHENYLEPHRINE 2.5% OPHTH 2 ML DROPS ONE; PROPARACAINE 0.5% OPHTH DROPS 15 ML ONE
[2021-12-11] MEDS ORDERED: TRIAMCIN/MOXIFLOX OPHTHALMIC 0.6 ML VIAL IO ONE ×2 (07:18→08:07)
[2021-12-11] MEDS ORDERED: EPINEPHrine 1 MG/ML AMP ONE (07:19)
[2021-12-11] MEDS ORDERED: BSS/LIDOCAINE/EPINEPHRINE 1 ML VIAL ONE (07:20)
[2021-12-11] MEDS ORDERED: TIMOLOL 0.5% OPHTH DROPS ONE (07:20)
[2021-12-11] MEDS ORDERED: BRIMONIDINE 0.2% OPHTH DROPS 5 ML ONE (07:20)
--- NOTE | 2021-12-11 07:21 | ANESTHESIA ---
Pre-Anesthesia VS, & Labs - Diagnosis senile combined right cataract - Procedure right cataract extraction with intraocular lens Height: 5 ft 7 in - NPO >8 hours Home Medications and Allergies Aspirin [Aspirin EC] 81 mg PO DAILY 12/17/20 Atorvastatin [Lipitor] 10 mg PO DAILY 12/17/20 Benazepril HCl [Lotensin] 40 mg PO BID 12/17/20 Docusate Sodium 100Mg Capsule [Colace 100Mg Capsule] 400 mg PO DAILY 12/17/20 Ferrous Gluconate 324 mg PO DAILY 12/17/20 Finasteride [Proscar] 5 mg PO DAILY 12/17/20 Insulin Glargine [Lantus Solostar] 19 unit SQ DAILY PM 12/17/20 Lactobacillus Acidophilus [Probiotic Acidophilus] 1 tab PO BID 12/17/20 Meloxicam [Mobic] 7.5 mg PO BID 12/17/20 Omeprazole 40 mg PO DAILY 12/17/20 Tamsulosin [Flomax] 0.4 mg PO ONCE 12/17/20 diazePAM [Valium] 5 mg PO PRN PRN 12/17/20 glipiZIDE [Glucotrol Xl] 2.5 mg PO DAILY 12/17/20 metFORMIN [Glucophage] 1,000 mg PO TID 12/17/20 Allergies/Adverse Reactions: Allergies Allergy/AdvReac Type Severity Reaction Status Date / Time almond Allergy Severe Anaphylaxis Verified 12/17/20 14:55 cephalexin Allergy Severe Anaphylaxis Verified 12/17/20 14:55 Penicillins Allergy Severe Respiratory Verified 12/17/20 14:55 pilocarpine Allergy Severe Unknown Verified 12/17/20 14:55 walnut Allergy Severe Anaphylaxis Verified 12/17/20 14:55 clindamycin AdvReac Unknown Verified 12/17/20 14:55 Anes History & Medical History - Anesthetic History Anesthesia Complications: reports: Emergence delirium - Medical History Cardiovascular: reports: High cholesterol, Murmur Pulmonary: reports: Shortness of breath Gastrointestinal: reports: Ulcers, Colon polyps Urinary: reports: None Neuro: reports: None Musculoskeletal: reports: Osteoarthritis Endocrine/Autoimmune: reports: Type 2 diabetes Blood Disorders: reports: Anemia Skin: reports: None Smoking Status: Former smoker - Surgical History General: reports: Appendectomy, Other Eyes Ears Nose Throat (EENT): reports: Tonsil/Adenoidectomy Orthopedic: reports: Arthroscopic surgery, Other Exam General: Alert, Oriented x3 Dental: WNL Neck Mobility: Normal Mallampati classification: II Thyromental Distance: greater than 6 cm Respiratory: Lungs clear Cardiovascular: Regular rate, Normal S1, Normal S2 Plan Anesthesia Type: MAC Consent for Procedure(s) Verified and Reviewed: Yes Code Status: Attempt Resuscitation ASA classification: 3-Severe systemic disease Is this case an emergency?: No
[2021-12-11] MEDS ORDERED: LACTATED RINGERS 1,000 ML IV ONE (07:25)
[2021-12-11] MEDS ORDERED: MIDAZOLAM 2 MG/2 ML VIAL ONE (07:30)
[2021-12-11] MEDS ORDERED: BRIMONIDINE 0.2% OPHTH DROPS 5 ML OPTH ONE (08:05)
[2021-12-11] MEDS ORDERED: EPINEPHrine 1 MG/ML AMP IR ONE (08:05)
[2021-12-11] MEDS ORDERED: TIMOLOL 0.5% OPHTH DROPS OPTH ONE (08:06)
[2021-12-11] MEDS ORDERED: BSS/LIDOCAINE/EPINEPHRINE 1 ML SYRINGE IO ONE (08:06)
[2021-12-11] MEDS ORDERED: VANCOMYCIN OPHTHALMI 8MG/0.8ML 8 MG/0.8 ML SYRINGE IO ONE (08:07)
[2021-12-11] MEDS ORDERED: PROPARACAINE 0.5% OPHTH DROPS 15 ML EACHEYE ONE (08:07)
[2021-12-11] MEDS ORDERED: LACTATED RINGERS 800 ML IV ONE (08:25)
[2021-12-11 08:34] VITALS: BP 135/69
--- NOTE | 2021-12-11 08:34 | OPERATIVE REPORT ---
Operative Report - Other Other Information/Narrative: Date of Surgery: 12/11/21 Preop Dx: Visually significant cataract right eye. This was the first cataract surgery. Postop Dx: Same Procedure: Phacoemulsification with posterior chamber toric intraocular lens implant right eye Surgeon: Dr. Noe Contreras Anesthesia: Monitored anesthesia care Complications: None Operative Indications: This is a 71-year-old M with progressive vision loss in the right eye due to 2+ nuclear sclerotic, 2+ posterior subcapsular, and va cuolar cataract. Best corrected visual acuity was 20/25 with glare to 20/200 vision in the right eye. Indications for surgery were: - Overall decrease in vision - Difficulty seeing words, closed captions, or game scores on TV - Difficulty seeing street signs - Difficulty driving in low light or at night - Difficulty driving at night because of headlights from other vehicles The patient was consented at length concerning the risks and benefits of cataract surgery after which the patient expressed a desire to proceed with surgery. Operative Procedure: The patients cornea was marked in the pre-surgical area to indicate the axis for the toric intraocular lens. The patient was taken into OR#3 and placed under monitored anesthesia care. A surgical time-out was conducted confirming correct patient, correct procedure, and correct surgical site. The patient was given topical anesthesia and then prepped and draped in the usual sterile fashion. The eye was entered at the 6 and 3 oclock positions. Intracameral Shugarcaine was injected into the anterior chamber f ollowed by a dispersive viscoelastic. A continuous-tear curvilinear capsulorhexis was performed. The nucleus was hydrodissected and phacoemulsified. The cortex was evacuated using automated infusion and aspiration. A cohesive viscoelastic was injected into the capsular bag and a 21.0 diopter toric intraocular lens was inserted into the bag and rotated to axis 168. Infusion and aspiration were used to evacuate the viscoelastic materials from the eye and the IOL was verified to remain on axis. The wounds were hydrated and the eye inflated to physiologic pressure using balanced salt solution. Approximately 0.25ml of a mixture of triamcinolone and moxifloxacin was injected trans- sclerally into the vitreous in the inferotemporal quadrant using a 30 gauge cannula. An additional 0.55ml of a mixture of triamcinolone, moxifloxacin, and vancomycin was injected subconjunctivally in the superior quadrant for infection and inflammation prophylaxis. Wound integrity was checked with Weck-Mabel sponges and the phaco wound continued to leak so a 10.0 Nylon suture was placed which stopped the leak. The IOL axis was again verified to be on the correct axis. The patient was taken from the operating room in good condition and given post- op instructions.
--- NOTE | 2021-12-11 10:37 | ANESTHESIA POST OP EVALUATION ---
Anesthesia Post Eval - Post Anesthesia Eval Vitals: Last Vital Signs Temp 36.2 C L 12/11/21 08:25 Pulse 78 12/11/21 08:34 Resp 16 12/11/21 08:34 BP 135/69 H 12/11/21 08:34 Pulse Ox 100 12/11/21 08:34 CV Function Including HR & BP: Stable Pain Control: Satisfactory Nausea & Vomiting: Negative Mental Status: Baseline Respiratory Status: Airway Patent Hydration Status: Satisfactory Anesthesia Complications: None
== END 2021-12-11 07:02 | disposition home or self-care (01) ==
LOC: SDS 07:01
PROVIDERS: ATTEND Ophthalmology
DX: E11.36 Type 2 diabetes mellitus with diabetic cataract (principal); H25.811 Combined forms of age-related cataract, right eye; N40.0 Benign prostatic hyperplasia without lower urinary tract symptoms; Z79.899 Other long term (current) drug therapy; Z87.891 Personal history of nicotine dependence; Z79.4 Long term (current) use of insulin; Z79.84 Long term (current) use of oral hypoglycemic drugs
CPT/HCPCS: 66984; A9270; J3490; J7120; V2632; V2787

== ENCOUNTER 2022-02-12 07:53 | Day surgery (SDC) | payer MEDICARE ==
[2022-02-12] MEDS ORDERED: LACTATED RINGERS 1,000 ML IV ONE ×2 (08:14→09:52)
--- NOTE | 2022-02-12 08:52 | ANESTHESIA ---
Pre-Anesthesia VS, & Labs - Diagnosis LEFT CATARACT - Procedure EXTRACTION OF LEFT CATARACT WITH LENS IMPLANT Vital Signs: Temp Pulse Resp BP Pulse Ox 36.7 C 66 16 127/58 L 98 02/12/22 08:15 02/12/22 08:15 02/12/22 08:15 02/12/22 08:15 02/12/22 08:15 Height: 5 ft 7 in Weight (kg): 99.2 kg Body Mass Index: 34.2 BMI Classification: Obese - NPO >8 hours Home Medications and Allergies Aspirin [Aspirin EC] 81 mg PO DAILY 12/17/20 Atorvastatin [Lipitor] 10 mg PO DAILY 12/17/20 Benazepril HCl [Lotensin] 40 mg PO BID 12/17/20 Docusate Sodium 100Mg Capsule [Colace 100Mg Capsule] 400 mg PO DAILY 12/17/20 Ferrous Gluconate 324 mg PO DAILY 12/17/20 Finasteride [Proscar] 5 mg PO DAILY 12/17/20 Insulin Glargine [Lantus Solostar] 19 unit SQ DAILY PM 12/17/20 Lactobacillus Acidophilus [Probiotic Acidophilus] 1 tab PO BID 12/17/20 Meloxicam [Mobic] 7.5 mg PO BID 12/17/20 Omeprazole 40 mg PO DAILY 12/17/20 Tamsulosin [Flomax] 0.4 mg PO ONCE 12/17/20 diazePAM [Valium] 5 mg PO PRN PRN 12/17/20 glipiZIDE [Glucotrol Xl] 2.5 mg PO DAILY 12/17/20 metFORMIN [Glucophage] 1,000 mg PO TID 12/17/20 Acetaminophen [Tylenol] 325 mg PO PRN PRN 12/11/21 Allergies/Adverse Reactions: Allergies Allergy/AdvReac Type Severity Reaction Status Date / Time almond Allergy Severe Anaphylaxis Verified 12/11/21 07:38 cephalexin Allergy Severe Anaphylaxis Verified 12/11/21 07:38 Penicillins Allergy Severe Respiratory Verified 12/11/21 07:38 pilocarpine Allergy Severe Unknown Verified 12/11/21 07:38 walnut Allergy Severe Anaphylaxis Verified 12/11/21 07:38 clindamycin AdvReac Unknown Verified 12/11/21 07:38 Anes History & Medical History - Anesthetic History Anesthesia Complications: reports: No previous complications Family history of Anesthesia Complications: Denies Family history of Malignant Hyperthermia: Denies - Medical History Cardiovascular: reports: Hypertension, High cholesterol Pulmonary: reports: Shortness of breath Gastrointestinal: reports: GERD (CONTROLLED ON MEDICATION), Ulcers, Colon polyps Urinary: reports: Benign prostate hypertrophy Neuro: reports: None Musculoskeletal: reports: Osteoarthritis Endocrine/Autoimmune: reports: Type 2 diabetes Blood Disorders: reports: Anemia Skin: reports: None Smoking Status: Former smoker (20 YEAR SMOKER - QUIT IN 1991) Psychosocial: reports: No issues indicated History of Cancer?: No - Surgical History General: reports: Appendectomy, Hiatal hernia repair, Other Eyes Ears Nose Throat (EENT): reports: Tonsil/Adenoidectomy Orthopedic: reports: Arthroscopic surgery (KNEE), Amputation ([place]), Other Exam General: Alert, Oriented x3, Cooperative, No acute distress Dental: WNL, Poor dentition Mouth Openin Fingerbreadth Neck Mobility: Normal Thyromental Distance: 4-6 cm Respiratory: Lungs clear, Normal breath sounds, No respiratory distress, No accessory muscle use Cardiovascular: Regular rate, Normal S1, Normal S2, No murmurs Mental/Cognitive Status: Alert/Oriented X3, Normal for patient Cognitive Status: Within normal limits Plan Anesthesia Type: MAC Consent for Procedure(s) Verified and Reviewed: Yes Code Status: Attempt Resuscitation ASA classification: 3-Severe systemic disease Is this case an emergency?: No
[2022-02-12] MEDS ORDERED: MIDAZOLAM 2 MG/2 ML VIAL ONE (09:30)
[2022-02-12] MEDS ORDERED: EPINEPHrine 1 MG/ML AMP IR ONE (09:44)
[2022-02-12] MEDS ORDERED: BRIMONIDINE 0.2% OPHTH DROPS 5 ML OPTH ONE (09:44)
[2022-02-12] MEDS ORDERED: TIMOLOL 0.5% OPHTH DROPS OPTH ONE (09:44)
[2022-02-12] MEDS ORDERED: TRIAMCIN/MOXIFLOX OPHTHALMIC 0.6 ML VIAL IO ONE ×3 (09:45→12:38)
[2022-02-12] MEDS ORDERED: BSS/LIDOCAINE/EPINEPHRINE 1 ML SYRINGE IO ONE (09:45)
[2022-02-12] MEDS ORDERED: PROPARACAINE 0.5% OPHTH DROPS 15 ML EACHEYE ONE (09:45)
[2022-02-12] MEDS ORDERED: VANCOMYCIN OPHTH (TOPICAL) 10 MG/ML SYRINGE TOP ONE (09:46)
--- NOTE | 2022-02-12 10:01 | OPERATIVE REPORT ---
Operative Report - Other Other Information/Narrative: Date of Surgery: 02/12/22 Preop Dx: Visually significant cataract left eye. Cataract surgery was performed in the right eye on . Postop Dx: Same Procedure: Phacoemulsification with posterior chamber intraocular lens implant left eye Surgeon: Dr. Noe Contreras Anesthesia: Monitored anesthesia care Complications: None Operative Indications: This is a 71-year-old M with progressive vision loss in the left eye due to 2+ nuclear sclerotic, 1+ posterior subcapsular, and vacuolar cataract. Best corrected visual acuity was 20/30 with glare to 20/100 vision in the left eye. Indications for surgery were: - Overall decrease in vision - Difficulty seeing words on a computer screen - Difficulty reading - Difficulty seeing words, closed captions, or game scores on TV - Difficulty seeing street signs - Difficulty driving in low light or at night - Difficulty driving at night because of headlights from other vehicles - Difficulty with glare or bright lights in any situation The patient was consented at length concerning the risks and benefits of cataract surgery after which the patient expressed a desire to proceed with surgery. Operative Procedure: The patient was taken into OR#3 and placed under monitored anesthesia care. A surgical time-out was conducted confirming correct patient, correct procedure, and correct surgical site. The patient was given topical anesthesia and then prepped and draped in the usual sterile fashion. The eye was entered at the 6 and 3 oclock positions. Intracameral Shugarcaine was injected into the anterior chamber followed by a dispersive viscoelastic. A continuous-tear curvilinear capsulorhexis was performed. The nucleus was hydrodissected and phacoemulsified. The cortex was evacuated using automated infusion and aspiration. Due to a floppy iris there was some iris damage inferiorly. A cohesive viscoelastic was injected into the capsular bag and a 20.0 diopter intraocular lens was inserted into the bag. Infusion and aspiration were used to evacuate the viscoelastic materials from the eye. The wounds were hydrated and the eye inflated to physiologic pressure using balanced salt solution. Approximately 0.25ml of a mixture of triamcinolone and moxifloxacin was injected trans-sclerally into the vitreous in the inferotemporal quadrant using a 30 gauge cannula. An additional 0.55ml of a mixture of triamcinolone and moxifloxacin was injected subconjunctivally in the superior quadrant for infection and inflammation prophylaxis. Wound integrity was checked with Weck- Mabel sponges. The patient was taken from the operating room in good condition and given post-op instructions.
--- NOTE | 2022-02-12 10:44 | ANESTHESIA POST OP EVALUATION ---
Anesthesia Post Eval - Post Anesthesia Eval Vitals: Last Vital Signs Temp 36.3 C L 02/12/22 09:52 Pulse 72 02/12/22 10:10 Resp 16 02/12/22 10:10 BP 122/70 02/12/22 10:10 Pulse Ox 97 02/12/22 10:10 CV Function Including HR & BP: Stable Pain Control: Satisfactory Nausea & Vomiting: Negative Mental Status: Baseline Respiratory Status: Airway Patent Hydration Status: Satisfactory Anesthesia Complications: None
[2022-02-12 10:46] VITALS: BP 128/63
[2022-02-12] MEDS ORDERED: BSS/LIDOCAINE/EPINEPHRINE 1 ML VIAL ONE (12:38)
[2022-02-12] MEDS ORDERED: BRIMONIDINE 0.2% OPHTH DROPS 5 ML ONE (12:38)
[2022-02-12] MEDS ORDERED: TIMOLOL 0.5% OPHTH DROPS ONE (12:38)
[2022-02-12] MEDS ORDERED: EPINEPHrine 1 MG/ML AMP ONE (12:38)
== END 2022-02-12 07:54 | disposition home or self-care (01) ==
LOC: SDS 07:53
PROVIDERS: ATTEND Ophthalmology
DX: E11.36 Type 2 diabetes mellitus with diabetic cataract (principal); H25.812 Combined forms of age-related cataract, left eye; I10 Essential (primary) hypertension; Z79.4 Long term (current) use of insulin; Z79.84 Long term (current) use of oral hypoglycemic drugs; Z87.891 Personal history of nicotine dependence
CPT/HCPCS: 66984; A9270; J3490; J7120

== ENCOUNTER 2022-06-23 07:37 | Outpatient (CLI) | payer MEDICARE ==
[2022-06-23 14:51] LABS: BASOPHILS # (AUTO) 0.1 10^3/uL (0.0-0.1); EOSINOPHILS # (AUTO) 0.4 10^3/uL (0.0-0.7); EOSINOPHILS % (AUTO) 5.2 %; HCT - HEMATOCRIT 46.5 % (42.0-52.0); HGB - HEMOGLOBIN 15.5 g/dL (14.0-18.0); LYMPHOCYTES % (AUTO) 30.2 %; MEAN CORPUSCULAR HEMOGLOBIN 30.5 pg (27.0-31.0); MEAN CORPUSCULAR HGB CONC 33.3 g/dL (32.0-36.0); MEAN CORPUSCULAR VOLUME 91.5 fL (80.0-94.0); MEAN PLATELET VOLUME 11.1 fL (7.4-11.4); MONOCYTES # (AUTO) 0.6 10^3/uL (0.0-1.0); NEUTROPHILS # (AUTO) 3.6 10^3/uL (1.5-6.6); NEUTROPHILS % (AUTO) 54.3 %; NRBC ABSOLUTE COUNT (AUTO) 0.03 x10^3/uL; NUCLEATED RED BLOOD CELLS AUTO 0.4 /100WBC; PLT - PLATELET COUNT 200 10^3/uL (130-450); RED BLOOD COUNT 5.08 10^6/uL (4.70-6.10); RED CELL DISTRIBUTION WIDTH 12.9 % (12.0-15.0); WHITE BLOOD COUNT 6.7 x10^3/uL (4.8-10.8)
[2022-06-23 15:10] LABS: ALBUMIN 3.9 g/dL (3.2-5.5); ALBUMIN/GLOBULIN RATIO 1.3 (1.0-2.2); ALKALINE PHOSPHATASE 47 IU/L (42-121); ALT ALANINE AMINOTRANSFERASE 23 IU/L (10-60); AST ASPARTATE AMINOTRANSFERASE 19 IU/L (10-42); BILIRUBIN,TOTAL 0.6 mg/dL (0.2-1.0); BUN - BLOOD UREA NITROGEN 15 mg/dL (6-20); CALCIUM 9.6 mg/dL (8.5-10.3); CARBON DIOXIDE - CO2 30 mmol/L (21-32); CHLORIDE 99 mmol/L (101-111); CHOL/HDL RATIO 2.7 (<5.0); CHOLESTEROL 130 mg/dL; CREATININE 0.7 mg/dL (0.6-1.2); GFR - MDRD 110 (>89); GLUCOSE 253 mg/dL (70-100); HDL CHOLESTEROL 48 mg/dL; LDL CHOLESTEROL,CALCULATED 67 mg/dL; LDL/HDL RATIO 1.4 (<3.6); POTASSIUM 4.5 mmol/L (3.5-5.0); SODIUM 137 mmol/L (135-145); TOTAL PROTEIN 6.8 g/dL (6.7-8.2); TRIGLYCERIDES 75 mg/dL; VLDL CHOLESTEROL 15 mg/dL
[2022-06-23 15:55] LABS: CREATININE,URINE 39.4 mg/dL; MICROALBUM/CREATININE RATIO,UR 12.7 ug/mg (<30.0); MICROALBUMIN,URINE 0.5 mg/dL (0-300.0)
[2022-06-23 20:40] LABS: ESTIMATED AVERAGE GLUCOSE 189 mg/dL (70-100); HEMOGLOBIN A1c% 8.2 % (4.27-6.07)
== END 2022-06-23 07:38 | disposition home or self-care (01) ==
LOC: LAB.S 07:37
PROVIDERS: ATTEND Registered Nurse
DX: E78.5 Hyperlipidemia, unspecified (principal); E11.9 Type 2 diabetes mellitus without complications; Z79.899 Other long term (current) drug therapy
CPT/HCPCS: 36415; 80053; 80061; 82043; 82570; 83036; 83721; 85025

== ENCOUNTER 2022-09-17 07:14 | Outpatient (CLI) | payer MEDICARE ==
[2022-09-17 15:25] LABS: CALCIUM 9.5 mg/dL (8.5-10.3); CREATININE 0.8 mg/dL (0.6-1.2); POTASSIUM 4.2 mmol/L (3.5-5.0)
[2022-09-17 21:47] LABS: ESTIMATED AVERAGE GLUCOSE 183 mg/dL (70-100)
== END 2022-09-17 07:15 | disposition home or self-care (01) ==
LOC: LAB.S 07:14
PROVIDERS: ATTEND Registered Nurse
DX: E11.9 Type 2 diabetes mellitus without complications (principal)
CPT/HCPCS: 36415; 80048; 83036

== ENCOUNTER 2022-12-24 07:03 | Outpatient (CLI) | payer MEDICARE ==
[2022-12-24 14:43] LABS: CALCIUM 9.5 mg/dL (8.5-10.3); CREATININE 0.9 mg/dL (0.6-1.2); POTASSIUM 4.3 mmol/L (3.5-5.0)
[2022-12-24 14:46] LABS: CREATININE,URINE 37.7 mg/dL; MICROALBUM/CREATININE RATIO,UR 10.6 ug/mg (<30.0); MICROALBUMIN,URINE 0.4 mg/dL (0-300.0)
[2022-12-24 20:29] LABS: ESTIMATED AVERAGE GLUCOSE 203 mg/dL (70-100); HEMOGLOBIN A1c% 8.7 % (4.27-6.07)
== END 2022-12-24 07:04 | disposition home or self-care (01) ==
LOC: LAB.S 07:03
PROVIDERS: ATTEND Registered Nurse
DX: E11.9 Type 2 diabetes mellitus without complications (principal)
CPT/HCPCS: 36415; 80048; 82043; 82570; 83036